=== PATIENT | female | born 1930 | race Hispanic/Latino ===

== ENCOUNTER 2017-09-25 16:08 | Observation (INO) | payer OTHER, BC ==
[2017-09-25 17:17] LABS: Absolute Monocytes 0.6 K/uL (0.1-1.3); Absolute Neutrophil 10.6 K/uL (1.8-8.0); Basophils % 0.4 % (0-1.3); Hematocrit 51.1 % (36.0-45.0); Lymphocytes % 8.5 % (15.3-44.8); MCH 31.5 pg (27.0-35.0); MCV 93.2 fL (80-100); Monocytes % 4.9 % (3.3-12.3); RBC Red Blood Cell Count 5.49 M/uL (3.86-4.86)
[2017-09-25] MEDS ORDERED: ONDANSETRON 4 MG/2 ML VIAL ONE (17:17)
[2017-09-25] MEDS: ONDANSETRON 4 MG/2 ML VIAL IV PRN ×2 (17:17→23:05)
[2017-09-25] MEDS: NACHLORIDE 0.45% 1,000 ML IV SCH ×2 (17:23→23:05)
[2017-09-25 17:40] LABS: Blood Morphology Comment NOT SEEN (NOT SEEN); Platelet Estimate ADEQ; Urine White Blood Cell Casts DIFF
[2017-09-25 18:04] LABS: Bilirubin Total 0.7 mg/dL (0.2-1.0); Potassium 4.1 mmol/L (3.5-5.1); Protein, Total 8.1 g/dL (6.4-8.2)
[2017-09-25 20:09] LABS: Urine Appearance CLEAR; Urine Bilirubin NEGATIVE (NEG); Urine Blood 1+ (NEG); Urine Color YELLOW; Urine Glucose NEGATIVE (NEG); Urine Protein 3+ (NEG); Urine Specific Gravity >=1.030 (1.005-1.030); Urine Urobilinogen 0.2 mg/dL (0.2-1.0); Urine pH 5.5 (5.0-7.0)
[2017-09-25 20:13] LABS: Urine Microscopic Reflex ORDER UMIC
[2017-09-25 20:33] LABS: Urine Bacteria >50 /HPF (<20); Urine Culture Reflex Order REFLEXED; Urine Mucus 1+ /HPF (NONE SEEN); Urine RBC <5 /HPF (NONE SEEN)
--- NOTE | 2017-09-25 20:36 | RAD REPORT ---
EXAM DESCRIPTION: RAD - Abdomen W Erect - 09/25/2017 8:30 pm CLINICAL HISTORY: Abdominal pain, dehydration COMPARISON: CT study same date TECHNIQUE: Supine and upright views of the abdomen were obtained. FINDINGS: Contrast is present in the kidneys, ureters and bladder from earlier CT study. Oral CT con trast is present in the bowel. Bowel gas pattern is nonspecific. No obstruction, free air or pneumato sis. No suspicious calcifications identifiable. Patient has prominent bony degenerative change. Numer ous phleboliths along the floor the pelvis. Focal defect in the lateral mid right kidney corresponds to a cyst. IMPRESSION: Two-view abdomen examination shows no acute or suspicious finding. Chronic changes are d etailed in the body of the report.
--- NOTE | 2017-09-25 20:42 | RAD REPORT ---
EXAM DESCRIPTION: CT - Abdomen Pelvis W Contrast - 09/25/2017 8:20 pm CLINICAL HISTORY: Abdominal pain, nausea and vomiting, history of hiatal hernia, cholecystectomy and hysterectomy COMPARISON: None. TECHNIQUE: Biphasic, helical CT imaging of the abdomen and pelvis was performed following 100 ml non -ionic IV contrast. Oral contrast was given. All CT scans are performed using dose optimization technique as appropriate and may include automated exposure control or mA/KV adjustment according to patient size. FINDINGS: Fibrotic changes are seen in the lung bases. No acute lung parenchymal process. No pericar dial thickening or effusion. The liver, spleen, and pancreas show no suspicious findings. Several small sub centimeter gallstones are present. No biliary dilatation. No active gallbladder or biliary tree process seen. Symmetric renal function is seen with no hydronephrosis or suspicious renal mass. No pyelonephritis i n either kidney. Bilateral renal cysts are present largest is 3.5 cm lateral mid right kidney and 3.1 cm anterior lower pole left kidney. Partially filled urinary bladder shows no suspicious finding. Hiatal hernia is present with approximately 40% of the stomach intrathoracic. Stomach is not fully im aged. 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 No gastric wall thickening or mass. No acute lar ge or small bowel finding. Prominent sigmoid diverticulosis present without diverticulitis. Uterus is absent. Ovaries are absent or atrophic. Numerous phleboliths are seen along the pelvic floor. Duoden al diverticulum is present. No free air, free fluid or inflammatory stranding. No mass or bulky lymp hadenopathy. No adrenal abnormality. Prominent bony degenerative change present without acute or pathologic bone process identifiable. Pro minent vascular calcifications are present. IMPRESSION: Contrast-enhanced CT abdomen and pelvis imaging shows no emergent finding. Stomach is distended by contrast with most if not all of the oral contrast remaining within the stoma ch. Gastroenteritis or gastro paresis would be possible. The patient's large hiatal hernia results in ac roximately 40% of the stomach intrathoracic with an organoaxial volvulus configuration. Incidental cholelithiasis. No acute biliary process.
[2017-09-26] MEDS: PROMETHAZINE 25 MG/ML VIAL IV PRN ×4 (02:48→18:20)
[2017-09-26] MEDS: METOCLOPRAMIDE 5 MG TAB PO SCH ×3 (07:30→21:07)
[2017-09-26] MEDS: CYPROHEPTADINE 4 MG TABLET PO SCH ×2 (09:00→21:00)
[2017-09-26] MEDS: NACHLORIDE 0.45% 1,000 ML IV SCH ×2 (09:00→17:00)
[2017-09-26] MEDS: PANTOPRAZOLE 40MG TABLET PO SCH (09:00)
[2017-09-26] MEDS ORDERED: SODIUM CHLORIDE 0.9% 10ML INJ IV PRN (13:14)
[2017-09-26] MEDS ORDERED: PANTOPRAZOLE 40 MG INJ IVP ONE (13:14)
[2017-09-26] MEDS: CEFTRIAXONE/SWI 1gm 1 GM/10 ML SYR IV SCH (13:32)
[2017-09-26] MEDS: ENSURE CLEAR 200 ML CAN PO SCH (21:00)
[2017-09-26] MEDS ORDERED: ENOXAPARIN 30 MG/0.3 ML SQ SCH (23:00)
[2017-09-27] MEDS: NACHLORIDE 0.45% 1,000 ML IV SCH (00:31)
--- NOTE | 2017-09-27 00:59 | HP ---
Date of Admission: 09/25/2017 Chief Complaint: Persistent nausea, vomiting. History Of Present Illness: An 87-year-old female who is visiting from [facility], who is known to have chronic hiatal hernia related symptoms as well as gastroparesis, was brought to the office as airlines could not accept her travel due to persistent nausea and vomiting. The patient denied any history of fever, chills, rigors. Past Medical History: History of hypertension, chronic gastroparesis, history of severe hiatal herni a. Family History: Noncontributory. Personal History: Nonsmoker. Home Medicines: Please refer to the chart. Allergies: MORPHINE. Review of Systems: No chest pain. Physical Examination: General: Revealed 87-year-old female. Vital Signs: Afebrile. HEENT: Negative. Neck: Supple. JVD negative. Chest: Clear. Heart: Regular. Abdomen: Mild epigastric tenderness. Bowel sounds present. Extremities: No edema. Neurological: Negative. Laboratory Data: White count 12.3, hemoglobin 17.3, BUN 35, creatinine 1.0. Urinalysis; urinary lorenza teria present. Assessment: 1.Acute on chronic gastroparesis and hiatal hernia related symptoms. 2.Hypertension. 3.Urinary tract infection. 4.Dehydration. Plan: It is not clear as to what can be accomplished as her expected travel is tomorrow. The patien t is due to be seen by GI Service to see what can be done by tomorrow that would relieve her symptoms . She is already on Reglan and Phenergan at home as well as Imodium. Her dehydration will be correc nola with IV fluids pending the GI consultation. JUANA/MARIEL Voice ID: [id number]
--- NOTE | 2017-09-27 02:18 | PN ---
Note: Dr. Trujillo dictating note for the hospitalist who is going to call me for the next 2 days. The patient's main problem is gastroparesis and large hiatal hernia. She has this problem for some t bobby. She had endoscopy done 2 months ago in [place]. CAT scan does not show any acute findings; h owever, she is unable to go in the airplane because of refusal by air lines to carry a sick patient. I spoke to the family, they are willing to do further testing here, however, have been told tonolimpia that [employer] flatbed driver is not available even though consult was written much earlier. The patient m eanwhile will receive IV fluids and and general wellbeing will be done to the family regarding future care. I will make rounds Friday and talk to the family and decide. JUANA/MARIEL Voice ID: [id number] Report ID: [id number]
[2017-09-27] MEDS: ONDANSETRON 4 MG/2 ML VIAL IV PRN (06:25)
[2017-09-27] MEDS: METOCLOPRAMIDE 5 MG TAB PO SCH ×2 (08:18→11:30)
[2017-09-27] MEDS ORDERED: NACHLORIDE 0.45% 1,000 ML IV SCH (09:00)
[2017-09-27] MEDS ORDERED: LISINOPRIL 10 MG TAB PO SCH (09:00)
[2017-09-27] MEDS: CYPROHEPTADINE 4 MG TABLET PO SCH (09:00)
[2017-09-27] MEDS: ENSURE CLEAR 200 ML CAN PO SCH (09:00)
[2017-09-27] MEDS: PANTOPRAZOLE 40MG TABLET PO SCH (09:00)
[2017-09-27] MEDS: CEFTRIAXONE/SWI 1gm 1 GM/10 ML SYR IV SCH (09:00)
[2017-09-27] MEDS ORDERED: LORazepam 2 MG/ML VIAL IV ONE (10:02)
[2017-09-27] MEDS ORDERED: D5 0.9 NS 1,000 ML IV SCH (11:54)
--- NOTE | 2017-09-29 09:34 | DS ---
Date of Discharge: 09/27/2017 Discharge Diagnoses: 1.Nausea, vomiting secondary to gastroparesis. 2.Large hiatal hernia. 3.Dehydration. 4.Hypertension. Consult: None. Procedure: CT scan done showed the stomach is distended. Gastritis or gastroparesis noted. The pat hermila had a large hiatal hernia with 40% of the stomach intrathoracic with some organoaxial volvulus c onfiguration, bilateral renal cysts noted. There was no acute organoaxial volvulus suspected on the CT scan. For history of present illness, please refer Dr. Trujillo's note. Hospital Course: Initially, the patient presented with recurrent nausea, vomiting. A CAT scan done in the emergency room showed signs of gastritis or gastroparesis. The patient was placed on IV fluid s and IV nausea medicine. Her nausea improved some. There was no GI available on the weekend to see the patient, and the family did not want to wait until Friday, and they decided to leave. I advised patient to go to [place] if she started to have nausea, vomiting as outpatient, as soon as possible, as in tertiary center, they usually have GI visualization developer. She can be seen on the weekend. She is trying to get back to [facility] and be seen by her GI physician, who usually follows her chronic gastroparesis. She advised to call or come back to emergency room either if she has nausea or vomiting again, or f ever, chills, night sweats. She will be given 1 L of D5 normal saline bolus before discharge, and sh rajat was found to be dehydrated on labs yesterday. She will continue her home medication. Discharge Condition: Critical but family requested that. Discharge Diet: Clear liquids, if she tolerates. Discharge Activity: As tolerated. Discharge Exam: Vital Signs: Discharge blood pressure is 136/81, respiratory rate 18, pulse 78, tem perature 98. General: The patient is alert, oriented x3. Does not look in any distress. She got Ativan earlier and her nausea subsided totally. HEENT: Atraumatic, normocephalic. PERRLA. Oral mucosa is moist. Neck: Supple. No JVD. No carotid bruits. Chest: Clear to auscultation. Good air entry. Heart: Regular rate and rhythm. S1, S2 normal. No gallop. Abdomen: Soft, nontender. No hepatosplenomegaly. Positive bowel sounds. Extremities: No clubbing, cyanosis, or edema. No calf tenderness. Discharge Medication: 1.Zofran 8 mg every 8 hours as needed for nausea. 2.Imodium 2 mg as needed. 3.Reglan 5 mg twice a day before meals. 4.Protonix 40 mg once a day. 5.Potassium 600 mg orally daily as before. 6.Compazine 10 mg every 6 hours as needed for nausea. 7.Phenergan 25 mg as needed twice a day. 8.Restoril 50 mg at nighttime. DEAN/MARIEL Voice ID: [id number] Report ID: [id number]
--- NOTE | 2017-09-29 09:34 | CON ---
Date of Consultation: 09/26/2017 Reason For Consultation: Intractable nausea, vomiting, abdominal pain, and weight loss. History Of Present Illness: Ms. Almonte is an 87-year-old female, who normally lives in [facility]. They are visiting local area with a relative. The patient apparently a number of months ago h ad such an episode of nausea, vomiting abdominal pain, located in the epigastrium. Worst pain is 5/1 0. Does not radiate anywhere else. Worse by eating food. Denies any hematemesis, melena, or hemato chezia, however food also exacerbates her nausea vomiting. She was treated with exactly what is unkn own, however, appears to be a PPI, had also underwent an EGD with finding of "peptic ulcer disease." For last 2 days, she developed similar problem along with 8 pounds of weight loss, unable to keep an ything down. Abdominal pain is intensity and as elaborated above does not radiate anywher e else. No fever, chills. No hematemesis, melena, or hematochezia. No change of diet, no change of medication. Past Medical History: Hypertension, questionable history of diabetes. Past Surgical History: Unknown. Family History: No family history of gastrointestinal malignancies. Social History: No alcohol or tobacco on a regular basis. Psychiatric History: None. Allergies: REVIEWED IN THE CHART. Medications: Reviewed in the chart. Review of Systems: General: No fever, chills. No history of anything new. Positive weight loss. No anorexia. GI: As elaborated above. Hepatologic: Denies any history of jaundice, hepatitis or any other liver issue that is known to her in the past. Pulmonary: No shortness of breath, cough, or expectoration. Cardiac: No palpitation or heart murmur. No orthopnea or dyspnea. Musculoskeletal: Generalized weakness, some arthralgia, myalgia. Dermatologic: No pruritus, however easy bruisability. genitourinary: None. Neuropsychiatric: None. Neuroendocrine: none. Physical Examination: General: Elderly female, thin built, cachectic. No other acute distress noted. Vital signs: Hemodynamic and respiratory profile within normal range. HEENT: Atraumatic, normocephalic. Some bitemporal wasting. Facial wasting. Oropharynx is clear. Neck: Supple. No lymphadenopathy. No exudate noted by the mouth cavity. Trachea central in positi on. Chest: Clear to auscultation and percussion. Cardiovascular: Normal S1, S2. No S3, no S4. Abdomen: Soft. Only epigastric tenderness on deep palpation. Bowel sounds are present. No hepatom egaly. No splenomegaly. No succussion splash. No rebound tenderness. Scaphoid in shape. Bowel so unds are excellent in all quadrants. Dermatologic: Decreased skin turgor. Loss of subcu pad of fat. No elton of pruritus. No other lesi on. neurologic: Alert and oriented x3. Intact memory, mentation, and judgment. Can move all extremitie s without any other problems. Diagnostic Data: Reviewed and analyzed. Hemoglobin and hematocrit are higher than. Normal CT scan shows cholelithiasis and possible distended gallbladder and stomach. Impression, Plan And Recommendations: Ms. Almonte is an 87-year-old female with abdominal pain, nause a, vomiting intolerance to food and weight loss. She has had similar problems in the past. Main con sideration in this case will be gastric outlet obstruction versus gastroparesis, however, given gallb ladder problem and other problems including peptic ulcer disease . [place] are [place] workup done as an outpatient . We will put her on p.o. proton pump inhibit or. Slowly advance diet. If she can progress to oral medication all of the above, furthe r workup could be done on an outpatient basis, specifically the fact that they want to leave for [place], [place]. However, if her condition does not improve, she may need an upper GI endoscopy. Differential discuss ed. I discussed with her and her regarding the indications, contraindications, possible comp lications, and alternatives of the EGD with biopsy should it be necessary. In the meanwhile, continu e on IV fluid hydration, proton pump inhibitor. Significance of distended gallbladder is not that surprising. Main question will be wheth er her cholelithiasis is causing the symptoms. At this time, her right upper quadrant is normal. Pa in is only in the epigastric area. Therefore, we will carefully watch her. Anti-reflux measure nestor ld be taken. I have had a long discussion with her regarding indications, contraindications, possible complication s, and alternatives of EGD should it be necessary. She has good understanding. . VIKI/MARIEL Voice ID: [id number] Report ID: [id number]
--- NOTE | 2017-09-29 13:16 | CON ---
Date of Consultation: 09/26/2017 An 87-year-old female, Dr. Trujillo. Reason For Consultation: Nausea, vomiting, abdominal pain, and dehydration. History Of Present Illness: Ms. Almonte is an 87-year-old female, who is normally from [place]. Ap parently, this is her one of multiple episodes of nausea, vomiting, abdominal pain, and weight loss. She has been treated in the past out of state, but exact findings are unknown, although there is an indication that she had had gastritis. Her nausea and vomiting increases tremendously after eating. Denies any hematemesis, melena, or hematochezia. Denies any fever or chills. Apparently, her past symptoms were the same. They do not know how they were treated and what was the exact diagnosis. At this time, the patient is feeling somewhat better. No nausea, vomiting at this time, however, abdom inal pain is still there. Abdominal pain is 3/10, located in the epigastrium. No radiation anywhere else. Food exacerbates it. It does not keep her awake. Past Medical History: Hypertension, as above. Past Surgical History: Not related to above. Family History: Denies any gastrointestinal malignancy. Social History: Rare alcohol. No tobacco. Psychiatric History: None. Allergies: REVIEWED IN THE CHART. Medications: Reviewed in the chart. Review of Systems: General: No fever, chills. Positive weight loss. Positive lack of appetite and early satiety. She did travel from [facility] to here in [place]. Pulmonary: No shortness of breath, cough, or expectoration. Cardiac: No palpitation or heart murmur. No orthopnea or dyspnea. GI: As elaborated above. Hepatologic: Denies any history of jaundice, hepatitis, any other liver condition. Urological: None. Genitourinary: No complaint. Musculoskeletal: no arthralgia, myalgia, however, weak on general basis. Dermatologic: No pruritus. No other lesion. Physical Examination: General: Elderly female, somewhat emaciated. No other acute distress noted. Vital Signs: Hemodynamic and respiratory profile within normal range. HEENT: Atraumatic, normocephalic. Evidence of bitemporal wasting, facial wasting. Neck: Muscles are wasted. Trachea central in position. Chest: Clear to auscultation and percussion. Cardiovascular: normal S1, S2. No S3, no S4. Abdomen: Soft. Mild epigastric tenderness on deep palpation. No hepatomegaly. No splenomegaly. N o succussion splash. Bowel sounds are excellent in all quadrants. No ascites. Neurologic: Alert and oriented x3. Intact memory, mentation, and judgment. Can move all her extrem ities, although somewhat sluggishly. Dermatologic: Decreased skin turgor throughout, loss of subcutaneous pad of fat. Musculoskeletal: Generalized loss of muscle mass and loose skin. Diagnostic data, radiologic data reviewed, analyzed. An abnormality is seen on CT scan. Discussed w ith the patient. Only some sludge, however, no stone. Impression, Plan, And Recommendation: Ms. Almonte is an 87-year-old female, with repeated nausea and vomiting. She appears to be somewhat emaciated, although her weight loss objectively cannot be asses sed, but she has physical evidence of weight loss. On blood test, she also has mild evidence of maln utrition. Given the above symptoms and persistent symptoms, although she had workup in the past, we will, if she stays here in town, she will need evaluation with an EGD and possible other GI workup if it does not explain. Differential diagnosis in this case will include, but not limited to gastropar esis, gastric outlet obstruction, gastritis, peptic ulcer disease, or small intestinal problem. I have had a long discussion with her and her , who is on the bedside. I know about their are out-of-town status. If they are still there, we will arrange for endoscopy on a routine basis since this not an emergent process. In the meanwhile, keep her hydration, pain management, fluid, and julia ctrolyte management. I have discussed with them regarding the indications, contraindications, possible complications, alte rnatives of GI endoscopies, both upper and lower with use of anesthesia including risk of bleeding, tear, perforation, infection, and anesthesia risk of rare fatalities. Her ASA classification will be initially 3, however, could go down to 2 without more stability. They have clear understanding. Radhika smiley are agreeable. VIKI/MARIEL Voice ID: [id number] Report ID: [id number]
== END 2017-09-27 13:24 | disposition home or self-care (01) ==
LOC: 2ND 16:29
PROVIDERS: ADMIT Internal Medicine; ATTEND Internal Medicine
DX: K31.84 Gastroparesis (principal); R11.2 Nausea with vomiting, unspecified; K44.9 Diaphragmatic hernia without obstruction or gangrene; E86.0 Dehydration; N39.0 Urinary tract infection, site not specified; I10 Essential (primary) hypertension
CPT/HCPCS: 36415; 74019; 74177; 80053; 85025; 87077; 87086; 87088; 87186; C9113; G0378; G0379; J0696 ×2; J1650; J2405 ×2; J2550 ×4; Q9967; 81003; 81015